=== PATIENT | female | born 1990 | race Caucasian/White ===

== ENCOUNTER 2022-06-07 12:55 | Emergency (ER) | payer BC, MEDICAID, SELFPAY ==
[2022-06-07 13:05] VITALS: BP 114/73; PULSE 79; RESP 16; TEMP 36.7; O2SAT 100; BMI 26.2
--- NOTE | 2022-06-07 13:13 | US_ITS ---
WS: [id number] EARLY OBSTETRICAL ULTRASOUND (<14 WEEKS). HISTORY: threatened miscarriage COMPARISON: None available. Single intrauterine gestational sac is identified. Cardiac activity at 160 BPM. Fernando Salinas-rump length jeramy sures 0.6 cm which corresponds to a gestation of 6w3d. Normal-appearing yolk sac and amnion demonstra simone. No subchorionic hemorrhage. No free fluid. Normal size ovaries with no mass. US/US OB <= 14 weeks fetus [id number] IMPRESSION: 1. Single intrauterine gestation of 6 weeks 3 days with an EDC of 01/28/2023. 2. Normal cardiac activity.
[2022-06-07 15:01] LABS: Basophils % 0.2 %; Eosinophils % 0.2 %; Hemoglobin 11.2 g/dL (11.5-15.3); Lymphocytes # 1.5 10^3/uL (0.8-4.8); Lymphocytes % 23.3 %; Mean Corpuscular Hemoglobin 29.8 pg (28.0-34.0); Mean Corpuscular Volume 93.1 fl (81-99); Monocytes # 0.4 10^3/uL (0.2-0.9); Monocytes % 5.3 %; Neutrophils # 4.68 10^3/uL (1.8-7.7); Neutrophils % 70.8 %; Nucleated Red Blood Cells % 0 %; Platelet Count 304 10^3/cmm (130-400); Red Blood Count 3.76 10^6/uL (4.1-5.3); Red Cell Distribution Width 14.4 % (12.1-15.1); White Blood Count 6.6 10^3/uL (4.0-10.0)
--- NOTE | 2022-06-07 15:12 | ED_ITS ---
HPI - General: Chief complaint: Vaginal Bleeding Stated complaint: seny by ania miscarriage Time Seen by Provider: 06/07/22 15:05 Source: patient Mode of arrival: ambulatory Limitations: no limitations History of Present Illness: 32-year-old female who is currently 7 weeks she states that over the last day she has been having some vaginal bleeding states she is passing some small clots. She denies any fever she has had 2 previous pregnancies with no problems she has not seen an OB yet. She had some mild abdominal cramping denies any worsening improving factors Date of Last Menstrual Period: 04/19/22 Associated symptoms: Deny abdominal pain, headache(s), nausea or vomiting Review of Systems Const: Denies: fever(s), chills, body aches or change in appetite Eyes: Denies: blurry vision or eye discomfort ENMT: Denies: throat pain or dental pain Card: Denies: chest pain Resp: Denies: dyspnea GI: Denies: abdominal pain, nausea, vomiting or diarrhea : Reports: vaginal bleeding Musc: Denies: neck pain or back pain Skin/Breast: Denies: rash Neuro: Denies: headache(s) Psych: Denies: depression Amaury/Lymph: Denies: easy bruising All/Imm: Denies: urticaria PFSH ED PFSH: Medical History (Updated 06/07/22 @ 15:48 by Tamra Smith MD) No pertinent past medical history Social History (Updated 06/07/22 @ 15:14 by Tamra Smith MD) Substance/Drug Use: never Female Reproductive History: Date of last menstrual period: 04/19/22 Physical Exam Const: COMMON NORMALS: no acute distress, patient oriented x3 and healthy appearing HENMT: COMMON NORMALS: normocephalic and atraumatic HEAD & SCALP: normocephalic and atraumatic Eye: COMMON NORMALS: Equal, round and reactive pupils present and EOMs intact bilaterally PUPIL: Yes Equal, round and reactive pupils present Neck/C-Spine: COMMON NORMALS: full ROM and supple Chest: COMMONS NORMALS: normal inspection of the chest and normal palpation of entire chest wall Resp: COMMON NORMALS: normal respiratory effort, No retractions, No use of accessory muscles and clear to auscultation bilaterally AUSCULTATION: clear to auscultation bilaterally Cardio: COMMON NORMALS: regular rate, regular rhythm and No murmurs present (Cardio) RATE: regular rate RHYTHM: regular rhythm GI: COMMON NORMALS: Normal to inspection, nondistended, normoactive bowel sounds present, Soft to palpation, non-tender and no masses PALPATION: Yes Soft to palpation Extremity: COMMON NORMALS: normal to inspection and full ROM Neuro: COMMON NORMALS: patient oriented x3, moves all extremities and no focal motor deficits Psych: COMMON NORMALS: mental status grossly normal, Normal thought process present and cooperative THOUGHT PROCESS: Normal thought process present Skin: COMMON NORMALS: no rashes or lesions noted and no wounds GENERAL SKIN EXAM: no rashes or lesions noted Course Vital Signs: Vital signs: Vital Signs Temperature 98.0 F 06/07/22 13:05 Pulse Rate 77 06/07/22 15:42 Respiratory Rate 16 06/07/22 13:05 Blood Pressure 105/65 06/07/22 15:42 Pulse Oximetry 100 06/07/22 15:42 Oxygen Delivery Me thod 06/07/22 13:05 MDM - OB/Uterine Contractions Medical Decision Making Patient presents here with a threatened miscarriage ultrasound showed IUP 6 weeks heart rate of 160 blood type is a positive bleeding is improved here she is stable for discharge she is to follow-up with her OB and return if worsening she understands Lino plan. Lab Data : 06/07/22 14:45 Radiology Impressions Ultrasound 06/07/22 13:13 IMPRESSION: 1. Single intrauterine gestation of 6 weeks 3 days with an EDC of 01/28/2023. 2. Normal cardiac activity. Laboratory Results WBC 6.6 10^3/uL (4.0-10.0) 06/07/22 14:45 RBC 3.76 10^6/uL (4.1-5.3) L 06/07/22 14:45 Hgb 11.2 g/dL (11.5-15.3) L 06/07/22 14:45 Hct 35.0 % (37.0-47.0) L 06/07/22 14:45 MCV 93.1 fl (81-99) 06/07/22 14:45 MCH 29.8 pg (28.0-34.0) 06/07/22 14:45 MCHC 32.0 g/dL (30.0-36.0) 06/07/22 14:45 RDW 14.4 % (12.1-15.1) 06/07/22 14:45 Plt Count 304 10^3/cmm (130-400) 06/07/22 14:45 MPV 11.0 fL (7.4-10.4) H 06/07/22 14:45 Neut % (Auto) 70.8 % 06/07/22 14:45 Lymph % (Auto) 23.3 % 06/07/22 14:45 Amelia % (Auto) 5.3 % 06/07/22 14:45 Eos % (Auto) 0.2 % 06/07/22 14:45 Baso % (Auto) 0.2 % 06/07/22 14:45 Neut # (Auto) 4.68 10^3/uL (1.8-7.7) 06/07/22 14:45 Lymph # (Auto) 1.5 10^3/uL (0.8-4.8) 06/07/22 14:45 Amelia # (Auto) 0.4 10^3/uL (0.2-0.9) 06/07/22 14:45 Eos # (Auto) 0.0 10^3/uL (0.0-0.8) 06/07/22 14:45 Baso # (Auto) 0.0 10^3/uL (0.0-0.1) 06/07/22 14:45 Nucleated RBC % (auto) 0 % 06/07/22 14:45 Nucleated RBCs # 0.0 /100WBC 06/07/22 14:45 Ser , Semi-Qnt 5199.00 mIU/mL 06/07/22 14:45 Discharge Plan Discharge Patient Disposition: Home Clinical Impression: Threatened miscarriage Discharge Orders: Discharge ED (Routine); Ordered 06/07/22 Ordered By: Tamra Smith Referrals: Fannie Seymour MD [Physician] - 1-3 days Hammond,CHARMAINE Stauffer [Primary Care Provider] - Discharge Diet: Advance as tolerated Discharge Activity: Resume usual activity Patient Instructions: Threatened Miscarriage (ED) Coding Level of Care Code ED Project Manager Industrial for Chg Fwd Exam Comprehensive
[2022-06-07 15:42] VITALS: BP 105/65; PULSE 77; O2SAT 100
--- NOTE | 2022-06-11 12:14 | DCPLANNER ---
Addendum entered by Julianne Diaz 06/27/22 07:59: Patient had an appointment scheduled for [facility]13.22 with [facility] - patient did attend appointment. Original Note: real estate operations manager had message to schedule a follow up appointment for patient with [facility]. real estate operations manager sent patients information to the front office staff at [facility]. Patients information will be printed and reviewed. Clinic will call patient with appointment information.
== END 2022-06-07 15:50 | disposition home or self-care (01) ==
PROVIDERS: Emergency Provider Emergency Medicine; PCP Nurse Practitioner Family
DX: O20.0 Threatened abortion (principal); Z3A.01 Less than 8 weeks gestation of pregnancy
CPT/HCPCS: 76801; 84702; 85025; 86850; 86900; 99284

== ENCOUNTER 2022-06-09 17:09 | Emergency (ER) | payer BC, MEDICAID, SELFPAY ==
[2022-06-09 17:23] VITALS: BP 139/85; PULSE 84; RESP 16; TEMP 36.7; O2SAT 98; BMI 26.2
--- NOTE | 2022-06-09 21:40 | ED_ITS ---
HPI - General: Chief complaint: Vaginal Bleeding Stated complaint: vaginal bleeding, dizzy, fever Time Seen by Provider: 06/09/22 21:34 History of Present Illness: 32-year-old female comes in today with increasing bleeding and pelvic cramping since Friday. Patient was seen on Friday for possible miscarriage. Ultrasound noted that there was still activity. Since then she has had an increase in her bleeding and has passed some tissue. This is patient's third with 2 live births. Patient reports no significant pain. Patient does report bleeding more than 2 pads an hour at the worst. Date of Last Menstrual Period: 04/19/22 Review of Systems General: Reports: 10 or more systems reviewed and unremarkable except in HPI and below : Reports: vaginal bleeding PFSH ED 2 PFSH: Medical History (Updated 06/09/22 @ 23:10 by VICKY Alejandra) No pertinent past medical history Female Reproductive History: Date of last menstrual period: 04/19/22 Physical Exam Const: COMMON NORMALS: alert HENMT: COMMON NORMALS: normocephalic HEAD & SCALP: normocephalic Neck/C-Spine: COMMON NORMALS: full ROM Resp: COMMON NORMALS: normal respiratory effort and clear to auscultation bilaterally AUSCULTATION: clear to auscultation bilaterally Cardio: COMMON NORMALS: regular rate and regular rhythm RATE: regular rate RHYTHM: regular rhythm : EXTERNAL FEMALE EXAM: Yes normal appearance of the urethra SPECULUM EXAM - VAGINA: No laceration SPECULUM EXAM - CERVIX: Yes Cervical os open (Clot removed from cervical os), No Cervical laceration present and No Cervical tenderness present BIMANUAL EXAM - VAGINA & UTERUS: No Cervical tenderness present OB/EXTERNAL & SPECULUM: Cervical os open (Clot removed from cervical os) Extremity: COMMON NORMALS: normal to inspection Neuro: SENSORIUM/ORIENTATION: Yes alert Skin: COMMON NORMALS: no rashes or lesions noted GENERAL SKIN EXAM: no rashes or lesions noted Course Vital Signs: Vital signs: Vital Signs Temperature 98.1 F 06/09/22 17:23 Pulse Rate 84 06/09/22 17:23 Respiratory Rate 16 06/09/22 17:23 Blood Pressure 139/85 06/09/22 17:23 Pulse Oximetry 98 06/09/22 17:23 MDM - OB/Uterine Contractions Medical Decision Making 32-year-old female comes in today for complaints of increased vaginal bleeding and a large clot that was passed. Patient showed me a picture of the clot and appeared to be tissue within it. On exam abdomen soft nontender. Skin is warm and dry. Vital signs are normal. Speculum exam noted as open cervical os with a clot at the entrance. Bleeding seems to be subsiding. Differential diagnosis includes but not limited to miscarriage, missed spontaneous , threatened miscarriage. Blood count was no change from prior visit 2 days ago. hCG had dropped from 5500 to 4200. Patient's bleeding was well controlled and only was spotting on discharge. Recommend recheck of hCG level in 3 days. Recommend return to the ER for increasing bleeding greater than 1 pad an hour, severe abdominal pain, and fever greater than 100.4. Patient reported understanding agreed to plan. Lab Data : 06/09/22 21:45 06/09/22 21:45 Laboratory Results WBC 6.6 10^3/uL (4.0-10.0) 06/09/22 21:45 RBC 3.78 10^6/uL (4.1-5.3) L 06/09/22 21:45 Hgb 11.3 g/dL (11.5-15.3) L 06/09/22 21:45 Hct 35.2 % (37.0-47.0) L 06/09/22 21:45 MCV 93.1 fl (81-99) 06/09/22 21:45 MCH 29.9 pg (28.0-34.0) 06/09/22 21:45 MCHC 32.1 g/dL (30.0-36.0) 06/09/22 21:45 RDW 14.0 % (12.1-15.1) 06/09/22 21:45 Plt Count 288 10^3/cmm (130-400) 06/09/22 21:45 MPV 11.3 fL (7.4-10.4) H 06/09/22 21:45 Neut % (Auto) 63.2 % 06/09/22 21:45 Lymph % (Auto) 30.5 % 06/09/22 21:45 [place] % (Auto) 5.1 % 06/09/22 21:45 Eos % (Auto) 0.5 % 06/09/22 21:45 Baso % (Auto) 0.5 % 06/09/22 21:45 Neut # (Auto) 4.19 10^3/uL (1.8-7.7) 06/09/22 21:45 Lymph # (Auto) 2.0 10^3/uL (0.8-4.8) 06/09/22 21:45 [place] # (Auto) 0.3 10^3/uL (0.2-0.9) 06/09/22 21:45 Eos # (Auto) 0.0 10^3/uL (0.0-0.8) 06/09/22 21:45 Baso # (Auto) 0.0 10^3/uL (0.0-0.1) 06/09/22 21:45 Nucleated RBC % (auto) 0 % 06/09/22 21:45 Nucleated RBCs # 0.0 /100WBC 06/09/22 21:45 Sodium 138 mmol/L (136-145) 06/09/22 21:45 Potassium 3.3 mmol/L (3.5-5.1) L 06/09/22 21:45 Chloride 103 mmol/L (98-107) 06/09/22 21:45 Carbon Dioxide 25 mmol/L (22-29) 06/09/22 21:45 Anion Gap 13.3 (5-19) 06/09/22 21:45 BUN 8 mg/dL (6-20) 06/09/22 21:45 Creatinine 0.6 mg/dL (0.5-0.9) 06/09/22 21:45 GFR Calculation 117.4 mL/min (90-130) 06/09/22 21:45 Glucose 108 mg/dL (65-115) 06/09/22 21:45 Calculated Osmolality 285 mOsm/kg (285-295) 06/09/22 21:45 Calcium 8.9 mg/dL (8.5-10.5) 06/09/22 21:45 Total Bilirubin 0.2 mg/dL (0.15-1.2) 06/09/22 21:45 AST 15 U/L (0-32) 06/09/22 21:45 ALT 8 U/L (0-33) 06/09/22 21:45 Alkaline Phosphatase 69 IU/L (35-105) 08/14/22 21:45 Total Protein 6.7 g/dL (6.6-8.7) 06/09/22 21:45 Albumin 4.0 g/dL (3.5-5.2) 06/09/22 21:45 Globulin 2.7 g/dL (1.3-4.6) 06/09/22 21:45 Ser , Semi-Qnt 4205.00 mIU/mL 06/09/22 21:45 Urine Color Straw (Yellow) 06/09/22 21:45 Urine Appearance Clear (CLEAR) 06/09/22 21:45 Urine pH 6 (5-7) 06/09/22 21:45 Ur Specific [place] 1.005 (1.005-1.030) 06/09/22 21:45 Urine Protein Neg (Negative) 06/09/22 21:45 Urine Glucose (UA) Norm (Normal) 06/09/22 21:45 Urine Ketones Negative (Negative) 06/09/22 21:45 Urine Blood 3+ (Negative) H 06/09/22 21:45 Urine Nitrate Negative (Negative) 06/09/22 21:45 Urine Bilirubin Neg (Negative) 06/09/22 21:45 Urine Urobilinogen Neg mg/dL (Negative) 06/09/22 21:45 Ur Leukocyte Esterase Negative (Negative) 06/09/22 21:45 Urine RBC 5-10 /hpf (0-2) H 06/09/22 21:45 Urine WBC 0-4 /hpf (0-5) H 06/09/22 21:45 Ur Squamous Epith Cells 5-10 /hpf (0-5) H 06/09/22 21:45 Amorphous Sediment Not Reportable 06/09/22 21:45 Urine Bacteria 1+ /hpf (NONE) H 06/09/22 21:45 Urine Mucus Trace /hpf 06/09/22 21:45 Discharge Plan Discharge Patient Disposition: Home Clinical Impression: Miscarriage Condition: Stable Discharge Orders: Discharge ED (Routine); Ordered 06/09/22 Ordered By: Barry Hernandez Referrals: Xiomy Hammond APN [Primary Care Provider] - Discharge Diet: Usual diet Discharge Activity: Increase activity as tolerated Patient Instructions: Miscarriage (ED) Activity Restrictions/Additional Instructions: Home and rest. Drink plenty of fluids. Monitor for fever greater than 100.4, bleeding greater than 1 pad an hour, or new concerns. If any of the symptoms or concerns please return to the ER. Follow-up with primary care in 2 to 3 days for recheck of blood work including beta-hCG. Coding Level of Care Code ED Car Pilot for Chg Fwd Exam Comprehensive
[2022-06-09 21:52] LABS: Basophils % 0.5 %; Eosinophils % 0.5 %; Hematocrit 35.2 % (37.0-47.0); Hemoglobin 11.3 g/dL (11.5-15.3); Lymphocytes % 30.5 %; Mean Corpuscular HGB Conc 32.1 g/dL (30.0-36.0); Mean Corpuscular Hemoglobin 29.9 pg (28.0-34.0); Mean Corpuscular Volume 93.1 fl (81-99); Mean Platelet Volume 11.3 fL (7.4-10.4); Monocytes # 0.3 10^3/uL (0.2-0.9); Monocytes % 5.1 %; Neutrophils # 4.19 10^3/uL (1.8-7.7); Neutrophils % 63.2 %; Nucleated Red Blood Cells % 0 %; Platelet Count 288 10^3/cmm (130-400); Red Blood Count 3.78 10^6/uL (4.1-5.3); White Blood Count 6.6 10^3/uL (4.0-10.0)
[2022-06-09 22:26] LABS: Alanine Aminotransferase 8 U/L (0-33); Alkaline Phosphatase 69 IU/L (35-105); Anion Gap 13.3 (5-19); Aspartate Amino Transferase 15 U/L (0-32); Blood Urea Nitrogen 8 mg/dL (6-20); Calcium 8.9 mg/dL (8.5-10.5); Carbon Dioxide 25 mmol/L (22-29); Chloride 103 mmol/L (98-107); Globulin 2.7 g/dL (1.3-4.6); Glomerular Filtration Rate 117.4 mL/min (90-130); Glucose 108 mg/dL (65-115); Osmolality Calculated 285 mOsm/kg (285-295); Potassium 3.3 mmol/L (3.5-5.1); Sodium 138 mmol/L (136-145); Total Bilirubin 0.2 mg/dL (0.15-1.2); Total Protein 6.7 g/dL (6.6-8.7)
[2022-06-09 22:41] LABS: Add Urine Microscopic? YES; Bilirubin Urine Neg (Negative); Blood Urine 3+ (Negative); Glucose Urine UA Norm (Normal); Ketones Urine Negative (Negative); Leukocyte Esterase Urine Negative (Negative); Nitrate Urine Negative (Negative); Protein Urine Neg (Negative); Specific Gravity, Urine 1.005 (1.005-1.030); Urine Appearance Clear (CLEAR); Urine Color Straw (Yellow); Urobilinogen Urine Neg (Negative); pH Urine 6 (5-7)
[2022-06-09 22:42] LABS: Add Urine Culture? No; Bacteria Urine 1+ /hpf; Mucus Urine TRACE /hpf; WBC Urine 0-4 /hpf (0-5)
== END 2022-06-09 23:19 | disposition home or self-care (01) ==
PROVIDERS: Emergency Provider Nurse Practitioner Family; PCP Nurse Practitioner Family
DX: O03.9 Complete or unspecified spontaneous abortion without complication (principal)
CPT/HCPCS: 80053; 81001; 84702; 85025; 99284

== ENCOUNTER → 2022-06-13 14:40 | Outpatient (BNVA) | payer BC, MEDICAID, SELFPAY | PROVIDERS: PCP Nurse Practitioner Family; Visit Provider Obstetrics & Gynecology | DX: O20.0 Threatened abortion (principal); Z3A.00 Weeks of gestation of pregnancy not specified | CPT/HCPCS: 84702 ==